=== PATIENT | male | born 1950 | race Caucasian/White ===

== ENCOUNTER → 2018-03-19 | Outpatient (CLI) | payer BC | LOC: CAT 07:42 | DX: Z13.6 Encounter for screening for cardiovascular disorders (principal) ==

== ENCOUNTER → 2019-07-31 | Outpatient (CLI) | payer BC, OTHER ==
[~2019-07-31] VITALS: Ht 182.9 cm; Wt 79.4 kg
[~2019-07-31] MED LIST: AMBIEN 5 MG TABL5 M1 PO; ASPIR 8181 MG PO; EDARBYCLOR 40-1 EACH PO; PRILOSEC OTC20 MG PO; SYNTHROID175 MCG PO
[2019-07-31 08:13] VITALS: BP 145/75
[2019-07-31 08:30] LABS: HEMATOCRIT 39.9 % (42.0-52.0); HEMOGLOBIN 13.5 gm/dL (14.0-18.0); MCH 31.8 pg (26.0-34.0); MCHC 33.8 g/dL (28.0-37.0); MCV 94.2 fL (80.0-100.0); RBC 4.24 mil/uL (4.50-6.00); RDW 12.8 % (10.5-14.5); WBC 5.1 thou/uL (4.0-11.0)
[2019-07-31 08:40] LABS: CALCIUM 9.8 mg/dL (8.5-10.1); CREATININE 1.2 mg/dL (0.7-1.3); POTASSIUM 3.6 mmol/L (3.5-5.1)
--- NOTE | 2019-08-01 16:24 | CATHLAB ---
[facility] [address] [address] INVASIVE PROCEDURE REPORT Name: EVER MARTELL Room #: REG PAT Caldwell#: [id number] Admission: 07/31/19 Attend Phys: Derick Boo, Discharge: Date of : 46 Report #: [id number] THIS REPORT FOR: //name// APPROVED REPORT Study performed: 07/31/2019 09:17:37 Patient Details Patient Status: Out-Patient Room #: The patient is a 68 year-old male Event Personnel Derick Boo Offshoring Manager, Drew Ortega RN, Alli Mcdermott RTR Scrub, Valeriano Bauer, Yissel Mejia RTR Scrub Procedures Performed Left Heart Cath w/or w/o Coronaries 5616299 [facility] Aortogram Abdominal Peripheral Angio [id number] Indication Chest pain Procedure Narrative The Right Groin^ was infiltrated with 1% Lidocaine subcutaneous anesthesia. A PINNACLE 6FR Sheath #[id number] sheath was inserted into the . Coronary angiography was performed using coronary diagnostic catheters. The right coronary system was accessed and visualized with a JR4 catheter. The left coronary system was accessed and visualized with a 6FR JL5 #[id number] catheter. The left ventricle was accessed and visualized with a PIGTAIL catheter. Left ventriculogram was performed in 30 degree projection. An aortogram of the abdominal aorta was performed. Closure device was deployed with a 6 Fr MYNXGRIP 6/7F #[id number]. The patient tolerated the procedure well and there were no complications associated with the procedure. There was no hematoma. Intraoperative Conscious Sedation Sedation start time: 9.49 Case end Time: 10.10 Fentanyl 50 mcg Versed 2 mg Fluoro Time: 2.10 minutes Dose: DAP 2487.00 cGycm2 267 mGy Contrast Type and Amount: Omnipaque 105 ml [facility] [place] [address] INVASIVE PROCEDURE REPORT Name: EVER MARTELL Room #: HELADIO Caldwell#: [id number] Admission: 07/31/19 Attend Phys: Derick Boo, Discharge: Date of : 46 Report #: [id number] Hemodynamics The aortic pressure is 120/67 mmHg with a mean of 89 mmHg. The left ventricular pressure is 118/10 mmHg with a mean of mmHg. The left ventricular end diastolic pressure is 23 mmHg. Conclusion #1 normal left ventricular size and systolic function EF 60% #2 mildly dilated aortic root with 1+ aortic insufficiency. Supravalvular aortogram #3 mild three-vessel coronary artery disease and a codominant system. There is no evidence of occlusive disease. Indications and plan: continue aggressive risk factor modification. No evidence of F significant epicardial disease. Consideration of subendocardial angina but no angiographic evidence. This is predominantly a more left dominant system but there is a small right-sided PDA <ELECTRONICALLY SIGNED> By: Derick Boo MD, FACC 08/01/191623 23 23 Derick Boo MD, FAC /INF
--- NOTE | 2019-08-02 13:25 | EKG ---
[address] [address] ELECTROCARDIOGRAM REPORT Name: EVER MARTELL Room #: REG MAE Caldwell#: [id number] Admission: 07/31/19 Attend Phys: Derick Boo MD, Discharge: Date of : 46 Report #: [id number] THIS REPORT FOR: //name// [facility] [place] [place] Test Date: 2019-07-31 Test Time: 08:16:34 Pat Name: EVER MARTELL Department: Room: Gender: M [employer]: : 1950 Requested By: Derick Boo Order Number: [id number] MD: Atilio Hoffmann Measurements Intervals [place] Rate: 61 P: 60 GA: 160 QRS: 21 QRSD: 98 T: 42 QT: 416 QTc: 419 Interpretive Statements Sinus rhythm Borderline ST elevation, anterior leads No previous ECG available for comparison Electronically Signed On 08-02-2019 13:25:05 CDT by Atilio Hoffmann [email or web address] <ELECTRONICALLY SIGNED> By: Atilio Hoffmann MD 08/02/19 1325 0816 5 MD JONO Tobar
== END | disposition home or self-care (01) ==
LOC: CATH 07:46
PROVIDERS: Internal Medicine Cardiovascular Disease
DX: R07.89 Other chest pain (principal); M19.90 Unspecified osteoarthritis, unspecified site; E78.5 Hyperlipidemia, unspecified; I10 Essential (primary) hypertension; G47.00 Insomnia, unspecified; K21.9 Gastro-esophageal reflux disease without esophagitis; Z98.890 Other specified postprocedural states; Z79.82 Long term (current) use of aspirin; Z79.899 Other long term (current) drug therapy